=== PATIENT | male | born 1945 | race Asian ===

== ENCOUNTER 2021-12-26 15:58 | Emergency (ER) | payer OTHER ==
[~2021-12-26] VITALS: Ht 167.6 cm; Wt 64.4 kg
[2021-12-26] MEDS ORDERED: IBUP600 PO (18:15)
[2021-12-26] MEDS ORDERED: HYDR1TAB94 PO (18:15)
== END 2021-12-26 18:40 | disposition home or self-care (01) ==
LOC: ER 15:58
DX: S70.11XA Contusion of right thigh, initial encounter (principal); E11.9 Type 2 diabetes mellitus without complications; I10 Essential (primary) hypertension; V03.90XA Pedestrian on foot injured in collision with car, pick-up truck or van, unspecified whether traffic or nontraffic accident, initial encounter
CPT/HCPCS: 73502; 73552; J3010